=== PATIENT | male | born 1935 | race Caucasian/White ===

== ENCOUNTER 2017-11-12 14:58 | Inpatient (IN) | payer MEDICARE, BC ==
[~2017-11-12] VITALS: Ht 182.9 cm; Wt 79.0 kg
[2017-11-12] MEDS ORDERED: CefTRIAXone 2gm/D5W 50ml 50 ML IV ONE (15:05)
[2017-11-12] MEDS ORDERED: normal saline 1000ML IV soln IV ONE (15:05)
[2017-11-12 15:45] LABS: BASOPHILS % (AUTO) 0.1 % (0-1); EOSINOPHILS % (AUTO) 0 % (0-6); HEMATOCRIT 41.1 % (42.0-52.0); HEMOGLOBIN 13.9 g/dl (14.0-17.9); LYMPHOCYTES # (AUTO) 0.9 X10'3 (1.1-4.8); LYMPHOCYTES % (AUTO) 5.6 % (21-51); MEAN CORPUSCULAR HEMOGLOBIN 31.8 PG (27.0-31.0); MEAN CORPUSCULAR HGB CONC 33.7 % (33.0-36.5); MEAN CORPUSCULAR VOLUME 94.3 FL (78-98); MEAN PLATELET VOLUME 9.1 FL (7.4-10.4); MONOCYTES % (AUTO) 5.8 % (2-12); NEUTROPHILS # (AUTO) 14.6 X10'3 (1.8-7.7); NEUTROPHILS % (AUTO) 88.5 % (42-75); PLATELET COUNT 167 X10'3 (140-440); RED BLOOD COUNT 4.35 X10'6 (4.70-6.10); RED CELL DISTRIBUTION WIDTH 14.2 % (11.5-14.5); WHITE BLOOD COUNT 16.5 X10'3 (4.5-11.0)
[2017-11-12 15:53] LABS: CLARITY,URINE SLIGHTLY CLOUDY (Clear); GLUCOSE, URINE 250 mg/dl (Neg); LEUKOCYTE ESTERASE ,URINE MODERATE (Neg); OCCULT BLOOD,URINE LARGE (Neg)
[2017-11-12 15:57] LABS: COLOR,URINE ORANGE (Yellow)
[2017-11-12 15:59] LABS: ALANINE AMINOTRANSFERASE 32 U/L (12-78); ALBUMIN 3.3 G/DL (3.4-5.0); ALBUMIN/GLOBULIN RATIO 0.9 (1.1-1.5); ALKALINE PHOSPHATASE 49 IU/L (46-116); ANION GAP 12 (8-16); ASPARTATE AMINO TRANSFERASE 20 U/L (10-37); BLOOD UREA NITROGEN 15 MG/DL (7-18); BUN/CREATININE RATIO 14.3 (5.4-32.0); CALCIUM 8.2 MG/DL (8.5-10.1); CHLORIDE 100 MMOL/L (99-107); CREATININE 1.05 MG/DL (0.60-1.10); GLUCOSE 121 MG/DL (70-104); MAGNESIUM 1.6 MG/DL (1.5-2.4); POTASSIUM 3.4 MMOL/L (3.5-5.1); SODIUM 135 MMOL/L (135-145); TOTAL CARBON DIOXIDE 23.1 MMOL/L (24-32); TOTAL PROTEIN 6.8 G/DL (6.4-8.2); eGFR 67 ML/MIN
[2017-11-12 16:11] LABS: BACTERIA,URINE 2+ /HPF (Neg); RBC,URINE 50-100 /HPF (0-2); SQUAMOUS EPITHELIAL CELL,UR FEW /LPF (FEW); WBC,URINE TNTC /HPF (0-4)
[2017-11-12 16:21] LABS: INR 1.1 INR; PARTIAL THROMBOPLASTIN TIME 30 SECONDS (22-32); PROTHROMBIN TIME 11.6 SECONDS (9.0-12.0)
[2017-11-12 16:31] LABS: UA COLLECTION TYPE URINAL
[2017-11-12] MEDS ORDERED: magnesium 2GM in 50ml NS 50 ML IV PRN (16:40)
[2017-11-12] MEDS ORDERED: magnesium hydroxide 30ml (MOM) UD suspension PO PRN (16:40)
[2017-11-12] MEDS ORDERED: magnesium 4gm in 100ml NS 100 ML IV PRN (16:40)
[2017-11-12] MEDS ORDERED: potassium Cl 40MEQ/NS 500ml 500 ML IV PRN ×2 (16:40)
[2017-11-12] MEDS ORDERED: potassium Cl 20 mEq SR tablet PO PRN ×2 (16:40)
[2017-11-12] MEDS ORDERED: bisacodyl 10mg suppository rectal RC PRN (16:40)
[2017-11-12] MEDS ORDERED: mag hydrox/Alum hydrox/simeth 30ml oral suspension PO PRN (16:40)
[2017-11-12] MEDS ORDERED: ondansetron/PF 4mg/2ml inj IV PRN (16:40)
[2017-11-12] MEDS ORDERED: magnesium Cl slow-release 64mg tablet PO PRN (16:40)
[2017-11-12] MEDS ORDERED: ATOR80TA PO (17:18)
[2017-11-12] MEDS ORDERED: LISI-600 PO (17:18)
[2017-11-12 18:40] VITALS: BP 125/60
[2017-11-12] MEDS: potassium Cl 20mEq in NS 1,000 ML IV SCH (18:41)
[2017-11-12] MEDS: docusate sod 100mg capsule PO SCH (20:00)
[2017-11-13] VITALS: BP 93/49
[2017-11-13] MEDS: acetaminophen 325mg tablet PO PRN (00:15)
[2017-11-13] MEDS: potassium Cl 20mEq in NS 1,000 ML IV SCH ×3 (01:26→15:31)
[2017-11-13 05:56] LABS: BASOPHILS % (AUTO) 0.2 % (0-1); EOSINOPHILS # (AUTO) 0.1 X10'3 (0-0.9); EOSINOPHILS % (AUTO) 0.8 % (0-6); HEMOGLOBIN 12.2 g/dl (14.0-17.9); LYMPHOCYTES # (AUTO) 1.7 X10'3 (1.1-4.8); LYMPHOCYTES % (AUTO) 10.1 % (21-51); MEAN CORPUSCULAR HEMOGLOBIN 31.8 PG (27.0-31.0); MEAN CORPUSCULAR VOLUME 93.5 FL (78-98); MEAN PLATELET VOLUME 9.3 FL (7.4-10.4); MONOCYTES # (AUTO) 1.2 X10'3 (0-0.9); MONOCYTES % (AUTO) 7.1 % (2-12); NEUTROPHILS # (AUTO) 13.6 X10'3 (1.8-7.7); NEUTROPHILS % (AUTO) 81.8 % (42-75); PLATELET COUNT 134 X10'3 (140-440); RED BLOOD COUNT 3.85 X10'6 (4.70-6.10); RED CELL DISTRIBUTION WIDTH 14.1 % (11.5-14.5); WHITE BLOOD COUNT 16.6 X10'3 (4.5-11.0)
[2017-11-13 06:06] LABS: ALBUMIN 2.6 G/DL (3.4-5.0); ANION GAP 9 (8-16); BLOOD UREA NITROGEN 11 MG/DL (7-18); BUN/CREATININE RATIO 9.4 (5.4-32.0); CALCIUM 7.7 MG/DL (8.5-10.1); CHLORIDE 103 MMOL/L (99-107); CREATININE 1.17 MG/DL (0.60-1.10); GLUCOSE 112 MG/DL (70-104); MAGNESIUM 1.6 MG/DL (1.5-2.4); POTASSIUM 3.9 MMOL/L (3.5-5.1); SODIUM 136 MMOL/L (135-145); TOTAL CARBON DIOXIDE 23.9 MMOL/L (24-32); eGFR 60 ML/MIN
[2017-11-13 07:00] VITALS: BP_SYST 100; BP_SYST 102; BP_SYST 112; BP_SYST 91; BP_DIAS 42; BP_DIAS 45; BP_DIAS 47; BP_DIAS 52
[2017-11-13] MEDS: docusate sod 100mg capsule PO SCH ×2 (08:00→21:28)
[2017-11-13] MEDS: enoxaparin 40mg/0.4ml syringe SUBCUT SCH (08:00)
[2017-11-13] MEDS: K and/or MAG REPLACEMENT MC SCH (08:00)
[2017-11-13] MEDS: CefTRIAXone/D5W-Rocephin 1gm 50 ML IV SCH (08:15)
[2017-11-13 11:10] VITALS: BP 109/49
[2017-11-13 18:30] VITALS: BP 114/60
[2017-11-13] MEDS: lactobacillus rhamnosus 10,000 MMU CELLS/CAPSULE PO SCH (21:28)
[2017-11-14] VITALS: BP 120/79
[2017-11-14] MEDS ORDERED: phenazopyridine 100mg tablet PO ONE (01:00)
[2017-11-14 05:26] LABS: BASOPHILS % (AUTO) 0.3 % (0-1); EOSINOPHILS % (AUTO) 0.3 % (0-6); HEMATOCRIT 35.6 % (42.0-52.0); HEMOGLOBIN 12.2 g/dl (14.0-17.9); LYMPHOCYTES # (AUTO) 1.9 X10'3 (1.1-4.8); LYMPHOCYTES % (AUTO) 11.8 % (21-51); MEAN CORPUSCULAR HEMOGLOBIN 32.3 PG (27.0-31.0); MEAN CORPUSCULAR HGB CONC 34.3 % (33.0-36.5); MEAN CORPUSCULAR VOLUME 94.3 FL (78-98); MEAN PLATELET VOLUME 9.4 FL (7.4-10.4); MONOCYTES # (AUTO) 1.4 X10'3 (0-0.9); MONOCYTES % (AUTO) 8.6 % (2-12); PLATELET COUNT 127 X10'3 (140-440); RED BLOOD COUNT 3.77 X10'6 (4.70-6.10); RED CELL DISTRIBUTION WIDTH 14.1 % (11.5-14.5); WHITE BLOOD COUNT 16.4 X10'3 (4.5-11.0)
[2017-11-14 05:41] LABS: ALBUMIN 2.4 G/DL (3.4-5.0); ANION GAP 9 (8-16); BLOOD UREA NITROGEN 10 MG/DL (7-18); BUN/CREATININE RATIO 9.8 (5.4-32.0); CALCIUM 7.7 MG/DL (8.5-10.1); CHLORIDE 102 MMOL/L (99-107); CREATININE 1.02 MG/DL (0.60-1.10); GLUCOSE 115 MG/DL (70-104); MAGNESIUM 1.7 MG/DL (1.5-2.4); SODIUM 133 MMOL/L (135-145); TOTAL CARBON DIOXIDE 22.5 MMOL/L (24-32); eGFR 70 ML/MIN
[2017-11-14 07:00] VITALS: BP_SYST 110; BP_SYST 111; BP_SYST 119; BP_DIAS 59; BP_DIAS 63
[2017-11-14] MEDS: CefTRIAXone/D5W-Rocephin 1gm 50 ML IV SCH (07:50)
[2017-11-14] MEDS: lactobacillus rhamnosus 10,000 MMU CELLS/CAPSULE PO SCH ×2 (07:50→20:50)
[2017-11-14] MEDS: atorvastatin 20mg tablet PO SCH (07:50)
[2017-11-14] MEDS: enoxaparin 40mg/0.4ml syringe SUBCUT SCH (08:00)
[2017-11-14] MEDS: docusate sod 100mg capsule PO SCH (08:00)
[2017-11-14] MEDS ORDERED: non-formulary drug (Atorvastatin Calcium (Lipitor) 1 TAB) PO SCH (08:00)
[2017-11-14] MEDS: K and/or MAG REPLACEMENT MC SCH (08:00)
[2017-11-14] MEDS: potassium Cl 20mEq in NS 1,000 ML IV SCH ×2 (08:02→18:08)
[2017-11-14] MEDS: phenazopyridine 100mg tablet PO SCH ×3 (08:58→18:07)
[2017-11-14 12:00] VITALS: BP 130/70
[2017-11-14 18:00] VITALS: BP 123/61
[2017-11-14 20:00] VITALS: BP_SYST 123; BP_SYST 131; BP_SYST 140; BP_DIAS 61; BP_DIAS 64; BP_DIAS 72
[2017-11-14] MEDS: tamsulosin 0.4mg capsule PO SCH (20:50)
[2017-11-15] VITALS: BP 150/69
[2017-11-15] MEDS: acetaminophen 325mg tablet PO PRN ×2 (00:11→23:23)
[2017-11-15] MEDS: potassium Cl 20mEq in NS 1,000 ML IV SCH ×2 (04:04→14:39)
[2017-11-15 05:48] LABS: BASOPHILS % (AUTO) 0.2 % (0-1); EOSINOPHILS # (AUTO) 0.6 X10'3 (0-0.9); EOSINOPHILS % (AUTO) 5.8 % (0-6); HEMATOCRIT 35.7 % (42.0-52.0); HEMOGLOBIN 12.2 g/dl (14.0-17.9); LYMPHOCYTES # (AUTO) 1.9 X10'3 (1.1-4.8); LYMPHOCYTES % (AUTO) 18.8 % (21-51); MEAN CORPUSCULAR HGB CONC 34.3 % (33.0-36.5); MEAN CORPUSCULAR VOLUME 93.3 FL (78-98); MEAN PLATELET VOLUME 9.4 FL (7.4-10.4); MONOCYTES # (AUTO) 1.1 X10'3 (0-0.9); MONOCYTES % (AUTO) 10.7 % (2-12); NEUTROPHILS # (AUTO) 6.5 X10'3 (1.8-7.7); NEUTROPHILS % (AUTO) 64.5 % (42-75); PLATELET COUNT 141 X10'3 (140-440); RED BLOOD COUNT 3.82 X10'6 (4.70-6.10); RED CELL DISTRIBUTION WIDTH 14.1 % (11.5-14.5)
[2017-11-15 06:22] LABS: ALBUMIN 2.4 G/DL (3.4-5.0); ANION GAP 8 (8-16); BLOOD UREA NITROGEN 10 MG/DL (7-18); BUN/CREATININE RATIO 9.8 (5.4-32.0); CALCIUM 8.1 MG/DL (8.5-10.1); CHLORIDE 105 MMOL/L (99-107); CREATININE 1.02 MG/DL (0.60-1.10); GLUCOSE 99 MG/DL (70-104); MAGNESIUM 1.7 MG/DL (1.5-2.4); POTASSIUM 4.2 MMOL/L (3.5-5.1); SODIUM 137 MMOL/L (135-145); TOTAL CARBON DIOXIDE 24.3 MMOL/L (24-32); eGFR 70 ML/MIN
[2017-11-15 07:00] VITALS: BP 145/75
[2017-11-15 07:27] VITALS: BP 157/79
[2017-11-15] MEDS: K and/or MAG REPLACEMENT MC SCH (07:31)
[2017-11-15] MEDS: enoxaparin 40mg/0.4ml syringe SUBCUT SCH (08:00)
[2017-11-15] MEDS: phenazopyridine 100mg tablet PO SCH ×3 (08:48→18:45)
[2017-11-15] MEDS: lactobacillus rhamnosus 10,000 MMU CELLS/CAPSULE PO SCH ×2 (08:48→20:53)
[2017-11-15] MEDS: CefTRIAXone/D5W-Rocephin 1gm 50 ML IV SCH (08:49)
[2017-11-15] MEDS: atorvastatin 20mg tablet PO SCH (08:49)
[2017-11-15] MEDS ORDERED: LEVO500T2 PO (09:10)
[2017-11-15] MEDS ORDERED: TAMS0.4C32 PO (09:10)
[2017-11-15 20:00] VITALS: BP 140/57
[2017-11-15] MEDS: tamsulosin 0.4mg capsule PO SCH (20:53)
[2017-11-16] VITALS: BP 143/70
[2017-11-16] MEDS: potassium Cl 20mEq in NS 1,000 ML IV SCH (00:55)
[2017-11-16 06:08] LABS: BASOPHILS % (AUTO) 0.6 % (0-1); EOSINOPHILS # (AUTO) 0.5 X10'3 (0-0.9); EOSINOPHILS % (AUTO) 5.7 % (0-6); HEMATOCRIT 35.7 % (42.0-52.0); LYMPHOCYTES # (AUTO) 1.8 X10'3 (1.1-4.8); LYMPHOCYTES % (AUTO) 21.2 % (21-51); MEAN CORPUSCULAR HEMOGLOBIN 31.7 PG (27.0-31.0); MEAN CORPUSCULAR HGB CONC 33.5 % (33.0-36.5); MEAN CORPUSCULAR VOLUME 94.9 FL (78-98); MEAN PLATELET VOLUME 9.4 FL (7.4-10.4); MONOCYTES % (AUTO) 11.4 % (2-12); NEUTROPHILS # (AUTO) 5.1 X10'3 (1.8-7.7); NEUTROPHILS % (AUTO) 61.1 % (42-75); PLATELET COUNT 167 X10'3 (140-440); RED BLOOD COUNT 3.77 X10'6 (4.70-6.10); RED CELL DISTRIBUTION WIDTH 14.2 % (11.5-14.5); WHITE BLOOD COUNT 8.4 X10'3 (4.5-11.0)
[2017-11-16 06:19] LABS: ALBUMIN 2.3 G/DL (3.4-5.0); ANION GAP 8 (8-16); BLOOD UREA NITROGEN 8 MG/DL (7-18); BUN/CREATININE RATIO 8.2 (5.4-32.0); CALCIUM 8.1 MG/DL (8.5-10.1); CHLORIDE 105 MMOL/L (99-107); CREATININE 0.97 MG/DL (0.60-1.10); GLUCOSE 99 MG/DL (70-104); MAGNESIUM 1.8 MG/DL (1.5-2.4); POTASSIUM 4.4 MMOL/L (3.5-5.1); SODIUM 138 MMOL/L (135-145); TOTAL CARBON DIOXIDE 24.6 MMOL/L (24-32); eGFR 74 ML/MIN
[2017-11-16 07:37] VITALS: BP 152/63
[2017-11-16] MEDS: enoxaparin 40mg/0.4ml syringe SUBCUT SCH (08:00)
[2017-11-16] MEDS: K and/or MAG REPLACEMENT MC SCH (08:00)
[2017-11-16] MEDS: atorvastatin 20mg tablet PO SCH (08:28)
[2017-11-16] MEDS: CefTRIAXone/D5W-Rocephin 1gm 50 ML IV SCH (08:28)
[2017-11-16] MEDS: lactobacillus rhamnosus 10,000 MMU CELLS/CAPSULE PO SCH (08:29)
[2017-11-16] MEDS: phenazopyridine 100mg tablet PO SCH (08:29)
== END 2017-11-16 12:10 | disposition home health service (06) | DRG 872 ==
LOC: ER 14:59 → EEVIPCON 16:12 → ED HOLD 16:12 → SUR 3N 18:17
PROVIDERS: ADMIT Internal Medicine; ATTEND Internal Medicine
DX: A41.9 Sepsis, unspecified organism (principal); D64.9 Anemia, unspecified; N39.0 Urinary tract infection, site not specified; E87.1 Hypo-osmolality and hyponatremia; E87.6 Hypokalemia; I10 Essential (primary) hypertension; E78.00 Pure hypercholesterolemia, unspecified; B96.20 Unspecified Escherichia coli [E. coli] as the cause of diseases classified elsewhere; E78.5 Hyperlipidemia, unspecified; N40.0 Benign prostatic hyperplasia without lower urinary tract symptoms; R61 Generalized hyperhidrosis; Z88.0 Allergy status to penicillin; Z79.899 Other long term (current) drug therapy
CPT/HCPCS: 36415; 71045; 80048; 80053; 81001; 83605; 83735; 84145; 85025; 85610; 85730; 87040; 87070; 87077; 87088; 87186; 93005; 96365; 97116; 97162; 97530; 99285; J0696; J1650; J7030

== ENCOUNTER 2020-07-01 12:55 | Emergency (ER) | payer OTHER, MEDICARE, BC ==
[~2020-07-01] VITALS: Ht 182.9 cm; Wt 77.3 kg
[~2020-07-01 12:55] MED LIST: ATOR80TA PO; LISI-600 PO; TAMS0.4C32 PO
[2020-07-01] MEDS ORDERED: normal saline 1000ml 1,000 ML IV ONE (13:00)
[2020-07-01] MEDS ORDERED: normal saline 1000ML IV soln IVB ONE (13:00)
[2020-07-01 13:57] LABS: BASOPHILS # (AUTO) 0.1 X10'3 (0-0.2); BASOPHILS % (AUTO) 1.3 % (0-1); EOSINOPHILS # (AUTO) 0.2 X10'3 (0-0.9); EOSINOPHILS % (AUTO) 3.1 % (0-6); HEMATOCRIT 43.8 % (42.0-52.0); HEMOGLOBIN 14.7 g/dl (14.0-17.9); LYMPHOCYTES # (AUTO) 1.9 X10'3 (1.1-4.8); MEAN CORPUSCULAR HEMOGLOBIN 32.2 PG (27.0-31.0); MEAN CORPUSCULAR HGB CONC 33.6 g/dL (33.0-36.5); MEAN CORPUSCULAR VOLUME 95.8 FL (78-98); MEAN PLATELET VOLUME 8.9 FL (7.4-10.4); MONOCYTES # (AUTO) 0.6 X10'3 (0-0.9); MONOCYTES % (AUTO) 9.8 % (2-12); NEUTROPHILS % (AUTO) 52.8 % (42-75); PLATELET COUNT 182 X10'3 (140-440); RED BLOOD COUNT 4.57 X10'6 (4.70-6.10); RED CELL DISTRIBUTION WIDTH 14.5 % (11.5-14.5); WHITE BLOOD COUNT 5.7 X10'3 (4.5-11.0)
[2020-07-01 14:12] LABS: PARTIAL THROMBOPLASTIN TIME 29 SECONDS (22-32)
[2020-07-01 14:16] LABS: ALANINE AMINOTRANSFERASE 36 U/L (12-78); ALBUMIN 3.6 G/DL (3.4-5.0); ALKALINE PHOSPHATASE 47 IU/L (46-116); ANION GAP 7 (8-16); ASPARTATE AMINO TRANSFERASE 24 U/L (10-37); BILIRUBIN,TOTAL 0.5 MG/DL (0.1-1.0); BLOOD UREA NITROGEN 13 MG/DL (7-18); BUN/CREATININE RATIO 12.1 (5.4-32.0); CHLORIDE 102 MMOL/L (99-107); CREATININE 1.07 MG/DL (0.60-1.10); GLUCOSE 107 MG/DL (70-104); POTASSIUM 4.2 MMOL/L (3.5-5.1); SODIUM 138 MMOL/L (135-145); TOTAL CARBON DIOXIDE 29.2 MMOL/L (24-32); TOTAL PROTEIN 7.2 G/DL (6.4-8.2); eGFR 66 ML/MIN
[2020-07-01 14:23] LABS: MAGNESIUM 2.1 MG/DL (1.5-2.4)
[2020-07-01 14:30] LABS: CLARITY,URINE CLEAR (Clear); COLOR,URINE STRAW (Yellow); GLUCOSE, URINE NEGATIVE (Neg); KETONES,URINE NEGATIVE (Neg); LEUKOCYTE ESTERASE ,URINE NEGATIVE (Neg); NITRITES, URINE NEGATIVE (Neg); OCCULT BLOOD,URINE SMALL (Neg); PROTEIN,URINE NEGATIVE (Neg); UA COLLECTION TYPE VOIDED; UROBILINOGEN,URINE 0.2 E.U/dL (0.2-1.0)
[2020-07-01 14:39] LABS: MUCUS STRANDS FEW /LPF (Neg); SQUAMOUS EPITHELIAL CELL,UR FEW /LPF (FEW)
[2020-07-01 14:40] LABS: BACTERIA,URINE FEW /HPF (Neg); WBC,URINE 0-4 /HPF (0-4)
[2020-07-01 15:47] VITALS: BP 161/78
== END 2020-07-01 15:48 | disposition home or self-care (01) ==
LOC: ER 12:56
DX: I49.9 Cardiac arrhythmia, unspecified (principal); R53.1 Weakness; R53.83 Other fatigue; E78.00 Pure hypercholesterolemia, unspecified; I10 Essential (primary) hypertension; Z87.440 Personal history of urinary (tract) infections; Z88.0 Allergy status to penicillin; Z79.899 Other long term (current) drug therapy
CPT/HCPCS: 36415; 71045; 80053; 81001; 83735; 83880; 84484; 85025; 85610; 85730; 93005; 96360; 96361; 99285; J7030